=== PATIENT | male | born 1940 | race Caucasian/White ===

== ENCOUNTER 2021-05-13 23:26 | Emergency (ER) | payer MEDICARE, MEDICAID ==
[~2021-05-13] VITALS: Ht 175.3 cm; Wt 72.6 kg
--- NOTE | 2021-05-13 23:26 | NUR ---
PT [place] [facility], PREBOOK. TAKEN TO ER CHAIR
[2021-05-13 23:31] VITALS: BP 157/73
--- NOTE | 2021-05-13 23:32 | NUR ---
Dr. Keys examining patient.
[2021-05-13] MEDS ORDERED: IBUPROFEN 800 MG TAB PO ONE (23:50)
[2021-05-13] MEDS ORDERED: IBUPROFEN 800 MG TAB ONE (23:53)
--- NOTE | 2021-05-13 23:59 | NUR ---
PT TAKEN TO XRAY
[2021-05-14 00:52] VITALS: BP 140/71
--- NOTE | 2021-05-14 00:53 | NUR ---
PATIENT [facility] [employer] DEPT. PATIENT EXAMINED BY DR. TIJERINA. PATIENT MEDICALLY CLEARED AND RELEASED IN CUSTODY IN STABLE CONDITION. ORIGINAL PRE-BOOK FORM GIVEN TO OFFICER JENNA.
== END 2021-05-14 00:53 ==
LOC: MED 23:26
DX: M54.50 Low back pain, unspecified (principal); Z02.89 Encounter for other administrative examinations
CPT/HCPCS: 72080; 99283